=== PATIENT | female | born 1995 | race Caucasian/White ===

== ENCOUNTER 2017-11-28 15:44 | Emergency (ER) | payer OTHER ==
[~2017-11-28] VITALS: Ht 157.5 cm; Wt 45.3 kg
[~2017-11-28 15:44] MED LIST: ONDA4TAB10 SL
[2017-11-28 15:57] VITALS: TEMP 37.1; Ht 157.5 cm; Wt 45.3 kg
[2017-11-28] MEDS ORDERED: SODIUM CHLORIDE 0.9% 500ML 500 ML IV STA (17:36)
[2017-11-28] MEDS ORDERED: ONDANSETRON INJ 2 MG/ML 2 ML VIAL IV STA (17:36)
[2017-11-28] MEDS ORDERED: KETOROLAC TROMETHAMINE 30 MG/ML VIAL IV STA (17:36)
--- NOTE | 2017-11-28 17:36 | EMERGENCY ROOM VISIT NOTE ---
History Report prepared by Cresencio: Jonathan Adamson Under the Supervision of: Dr. Mariano Dixon M.D. First contact with patient: 17:18 Chief Complaint: ABDOMINAL PAIN Stated Complaint: RIGHT SIDE PAIN, STOMACH PAIN Nursing Triage Summary: Patient with c/o right lower abdominal pain. c/o nausea, dizziness. History of Present Illness The patient is a 22 year old female with a past medical history of asthma, PNA, and bronchitis who presents to the ED with a cc of constant RLQ quadrant pain that the patient describes are a sharp sensation that started a couple hours ago while at work. The patient did state that she had a bowel movement a couple minutes ago and it was normal. The patient also noted that her LNMP was about two weeks ago and it was normal as well. Positive for nausea and FHx of DM.. Negative for fevers, chills, current medications, alcohol use, tobacco use, drug use, and vomiting. Source of History: patient Onset: A couple hours ago Position: abdomen (Middle and RLQ) Quality: sharp Timing: constant Associated Symptoms: + nausea, No fevers, No chills, No vomiting, No diarrhea Review of Systems See HPI for pertinent positives and negatives. A total of ten systems were reviewed and were otherwise negative. Past Medical & Surgical Medical Problems: (1) Asthma (2) Bronchitis (3) Pneumonia Family History FHx: cancer FHx: gallbladder disease FHx: hypertension FHx: kidney disease/stones FHx: lung disease Social History Smoking Status: Never Smoker Alcohol Use: none Marital Status: single Housing Status: lives with family Occupation Status: student Current/Historical Medications Scheduled PRN Ondansetron Hcl (Zofran), 4 MG PO Q8H PRN for Nausea Allergies Coded Allergies: No Known Allergies (Unverified , 11/28/17) Physical Exam Vital Signs Date Time Temp Pulse Resp B/P (MAP) Pulse Ox O2 Delivery O2 Flow Rate FiO2 11/28/17 19:27 50 18 123/67 100 11/28/17 19:09 50 18 123/67 100 Room Air 11/28/17 18:09 81 11/28/17 17:54 70 97/59 100 Room Air 11/28/17 15:57 37.1 85 18 123/65 97 Room Air Physical Exam GENERAL: Awake, alert, well-appearing, NAD HENT: Normocephalic, atraumatic. EYES: Normal conjunctiva. Sclera non-icteric. PERRL. No anisocoria. NECK: Supple. No nuchal rigidity. FROM. RESPIRATORY: CTAB, no rhonchi, wheezing, crackles CARDIAC: RRR, no MRG ABDOMEN: Soft, NTND, BS+, RLQ pain, epigastric pain, periumbilical pain, positive obturator, positive psoas MSK: No chest wall TTP, no LE edema NEURO: GCS 15, CN 2-12 intact, moves all 4s on command SKIN: No rash or jaundice noted. Tattoos noted bilaterally on UE Medical Decision & Procedures ER Provider Diagnostic Interpretation: Radiology results as stated below per my review and radiologist interpretation: CT OF THE ABDOMEN AND PELVIS WITH CONTRAST CLINICAL HISTORY: Right lower quadrant pain. Periumbilical pain. COMPARISON STUDY: CT of the abdomen and pelvis August 12, 2013 and right upper quadrant ultrasound July 06, 2015. TECHNIQUE: Following IV administration of 93 mL of Optiray-320, axial images of the abdomen and pelvis were obtained from the lung bases to the proximal femurs. Images were reviewed in the axial, sagittal, and coronal planes. IV contrast was administered without complication. A dose lowering technique was utilized adhering to the principles of ALARA. CT DOSE: 229.31 mGycm FINDINGS: Lung bases are clear. Periportal edema is noted. There is no biliary or pancreatic ductal dilatation. Prominent mucosal enhancement of the gallbladder is noted. However, the gallbladder is not distended. Spleen, adrenal glands, kidneys and pancreas are unremarkable. There is no hydronephrosis or hydroureter. Caliber and wall thickness of small and large bowel are normal. The appendix is normal. No pneumatosis, free air or portal venous gas is present. A left ovarian corpus luteal cyst measures 2.1 cm. No suspicious osseous lesions are noted. Small pelvic calcifications likely reflect phleboliths. IMPRESSION: 1. No acute process within the abdomen or pelvis. Normal appendix. No bowel obstruction. 2. 2.1 cm left ovarian corpus luteal cyst. 3. 2 mm right pelvic calcification. The course of the right ureter is difficult to follow however this likely reflects a phlebolith. A nonobstructing ureteral calculus is considered less likely. No hydronephrosis. Electronically signed by: Loc Hong M.D. 11/28/2017 6:58 PM Dictated Date/Time: 11/28/2017 6:52 PM Laboratory Results 11/28/17 17:43 Red Blood Count 4.71, Mean Corpuscular Volume 89.4, Mean Corpuscular Hemoglobin 29.3, Mean Corpuscular Hemoglobin Concent 32.8, Mean Platelet Volume 11.4, Neutrophils (%) (Auto) 62.2, Lymphocytes (%) (Auto) 28.1, Monocytes (%) (Auto) 8.7, Eosinophils (%) (Auto) 0.8, Basophils (%) (Auto) 0.1, Neutrophils # (Auto) 4.44, Lymphocytes # (Auto) 2.01, Monocytes # (Auto) 0.62, Eosinophils # (Auto) 0.06, Basophils # (Auto) 0.01 11/28/17 17:43 Test 11/28/17 17:43 White Blood Count 7.15 K/uL (4.8-10.8) Red Blood Count 4.71 M/uL (4.2-5.4) Hemoglobin 13.8 g/dL (12.0-16.0) Hematocrit 42.1 % (37-47) Mean Corpuscular Volume 89.4 fL (80-100) Mean Corpuscular Hemoglobin 29.3 pg (25-34) Mean Corpuscular Hemoglobin Concent 32.8 g/dl (32-36) Platelet Count 230 K/uL (130-400) Mean Platelet Volume 11.4 fL (7.4-10.4) Neutrophils (%) (Auto) 62.2 % Lymphocytes (%) (Auto) 28.1 % Monocytes (%) (Auto) 8.7 % Eosinophils (%) (Auto) 0.8 % Basophils (%) (Auto) 0.1 % Neutrophils # (Auto) 4.44 K/uL (1.4-6.5) Lymphocytes # (Auto) 2.01 K/uL (1.2-3.4) Monocytes # (Auto) 0.62 K/uL (0.11-0.59) Eosinophils # (Auto) 0.06 K/uL (0-0.5) Basophils # (Auto) 0.01 K/uL (0-0.2) RDW Standard Deviation 41.5 fL (36.4-46.3) RDW Coefficient of Variation 12.7 % (11.5-14.5) Immature Granulocyte % (Auto) 0.1 % Immature Granulocyte # (Auto) 0.01 K/uL (0.00-0.02) Urine Color YELLOW Urine Appearance TURBID (CLEAR) Urine pH 8.0 (4.5-7.5) Urine Specific [place] 1.023 (1.000-1.030) Urine Protein NEG (NEG) Urine Glucose (UA) NEG (NEG) Urine Ketones NEG (NEG) Urine Occult Blood NEG (NEG) Urine Nitrite NEG (NEG) Urine Bilirubin NEG (NEG) Urine Urobilinogen NEG (NEG) Urine Leukocyte Esterase TRACE (NEG) Urine WBC (Auto) 5-10 /hpf (0-5) Urine RBC (Auto) 0-4 /hpf (0-4) Urine Hyaline Casts (Auto) 1-5 /lpf (0-5) Urine Epithelial Cells (Auto) >30 /lpf (0-5) Urine Bacteria (Auto) NEG (NEG) Urine Test NEG (NEG) Anion Gap 3.0 mmol/L (3-11) Est Creatinine Clear Calc Drug Dose 67.1 ml/min Estimated GFR () 99.8 Estimated GFR (Non- 86.1 BUN/Creatinine Ratio 14.5 (10-20) Calcium Level 8.7 mg/dl (8.5-10.1) Total Bilirubin 0.6 mg/dl (0.2-1) Direct Bilirubin 0.2 mg/dl (0-0.2) Aspartate Amino Transf (AST/SGOT) 17 U/L (15-37) Alanine Aminotransferase (ALT/SGPT) 17 U/L (12-78) Alkaline Phosphatase 77 U/L (45-117) Total Protein 7.3 gm/dl (6.4-8.2) Albumin 4.1 gm/dl (3.4-5.0) Lipase 170 U/L (73-393) Laboratory results reviewed by me Medications Administered Medications (Trade) Dose Ordered Sig/Adelfo Route Start Time Stop Time Status Last Admin Dose Admin Ondansetron HCl (Zofran Inj) 4 mg NOW STAT IV 11/28/17 17:36 11/28/17 17:38 DC 11/28/17 17:51 4 MG Ketorolac Tromethamine (Toradol Inj) 30 mg NOW STAT IV 8/10/18 17:36 11/28/17 17:38 DC 11/28/17 17:52 30 MG Sodium Chloride 500 ml @ 999 mls/hr Q31M STAT IV 11/28/17 17:36 11/28/17 18:06 DC 11/28/17 17:52 999 MLS/HR Ondansetron HCl (ZOFRAN ODT 4MG Home Pack) 1 [facility] STK-MED ONCE .ROUTE 11/28/17 19:15 11/28/17 19:16 DC 11/28/17 19:18 1 [facility] ED Course 1730: The patient was evaluated in room C3. A complete history and physical exam was performed. 1916: I reevaluated the patient's condition and she is good to discharge. 1999: I reevaluated the patient. Discussed results and discharge instructions: She verbalized understanding and agreement. The patient is ready for discharge. Medical Decision Nursing notes reviewed. Ancillary studies and prior records reviewed. Differential diagnosis: Etiologies such as appendicitis, diverticulitis, PUD, biliary pathology, UTI, pancreatitis, obstruction, mesenteric ischemia, aortic pathology, infections, inflammatory bowel disease, renal colic, phlebitis as well as others were entertained. Patient was seen and evaluated the bedside. The patient states that she has had 3 hours of associated right lower quadrant discomfort. Patient states that she is fairly uncomfortable. Patient does have a positive obturator so has some right lower quadrant discomfort. Patient denies any vaginal bleeding or discharge. Last menstrual period in mid October. Patient did have blood work, urinalysis, CT abdomen pelvis and was given medications for symptom control. Patient's blood work is fairly unremarkable. Patient is fairly well-appearing upon reassessment. CT does show a phlebolith but no other acute abnormalities. Patient also does have a left-sided ovarian cyst. Patient does not have any left-sided abdominal or pelvic pain. The patient's cyst is only 2 cm less likely to torse. I did explain the findings the patient. The patient was feeling improved. Patient was given a different home pack and given Zofran as a prescription and also told to continue Motrin Tylenol bland diet. Patient was given strict follow-up, discharge, and return precautions. All questions were answered. Patient was deemed suitable for outpatient follow-up at this time. Patient agreed with the plan of care and was safely discharged home. Medication Reconcilliation Current Medication List: was personally reviewed by me Blood Pressure Screening Patient's blood pressure: Normal blood pressure Impression Primary Impression: Right lower quadrant abdominal pain Additional Impressions: Phlebolith Ovarian cyst Scribe Attestation The scribe's documentation has been prepared under my direction and personally reviewed by me in its entirety. I confirm that the note above accurately reflects all work, treatment, procedures, and medical decision making performed by me. Departure Information Dispostion Home / Self-Care Prescriptions Ondansetron Hcl (ZOFRAN) 4 Mg Tab 4 MG PO Q8H Y for Nausea, #12 TAB Prov: Mariano Dixon M.D. 11/28/17 Referrals No Doctor, Assigned (PCP) Forms HOME CARE DOCUMENTATION FORM, IMPORTANT VISIT INFORMATION Patient Instructions ED Diet [place], ED Nausea Vomiting, My [facility] Additional Instructions Please return to the emergency department if you have worsening or recurrent symptoms not amenable to at-home treatment. Please call for a follow-up appointment with her primary care physician. Please take your medications as prescribed. If you have other concerns and/or complaints please feel free to also call your primary care physician's office or return the ED for further evaluation, management, and treatment. You may take 600 mg Ibuprofen every 6 hours as needed for pain/fever with food unless told by your physician not to take NSAIDs. You may take tylenol 650 mg every 6 hours as needed for pain/fever unless told by your physician to not take it or have liver problems. You may take motrin and tylenol separately or at the same time. Take your medications as prescribed. You have been examined and treated today on an emergency basis only. This is not a substitute for, or an effort to provide, complete comprehensive medical care. It is impossible to recognize and treat all injuries or illnesses in a single emergency department visit. It is therefore important that you follow up closely with [facility], your PCP, and/or your specialist(s). Call as soon as possible for an appointment. Thank you for your time and consideration. I look forward to speaking with you again soon. Please don't hesitate to call us if you have any questions. Problem Qualifiers Additional Impressions: Ovarian cyst Laterality: left Qualified Codes: N83.202 - Unspecified ovarian cyst, left side
[2017-11-28] MEDS ORDERED: OPTIRAY 320 IV PRN (17:45)
[2017-11-28 17:54] LABS: BASO % 0.1 %; BASO ABS # 0.01 K/uL (0-0.2); EOS % 0.8 %; EOS ABS # 0.06 K/uL (0-0.5); HEMATOCRIT 42.1 % (37-47); HEMOGLOBIN 13.8 g/dL (12.0-16.0); IG# 0.01 K/uL (0.00-0.02); LYMPH % 28.1 %; LYMPH ABS # 2.01 K/uL (1.2-3.4); MEAN CELL VOLUME 89.4 fL (80-100); MEAN CORPUSCULAR HEMOGLOBIN 29.3 pg (25-34); MEAN CORPUSCULAR HGB CONC 32.8 g/dl (32-36); MEAN PLATELET VOLUME 11.4 fL (7.4-10.4); MONO % 8.7 %; MONO ABS # 0.62 K/uL (0.11-0.59); NEUT % 62.2 %; NEUT ABS # 4.44 K/uL (1.4-6.5); PLATELET COUNT 230 K/uL (130-400); RED CELL DISTRIBUTION WIDTH CV 12.7 % (11.5-14.5); RED CELL DISTRIBUTION WIDTH SD 41.5 fL (36.4-46.3); WHITE BLOOD COUNT 7.15 K/uL (4.8-10.8)
[2017-11-28 18:14] LABS: ALBUMIN 4.1 gm/dl (3.4-5.0); CALCIUM 8.7 mg/dl (8.5-10.1); CREATININE 0.94 mg/dl (0.60-1.20); POTASSIUM 3.8 mmol/L (3.5-5.1); TOTAL PROTEIN 7.3 gm/dl (6.4-8.2)
--- NOTE | 2017-11-28 19:00 | DIAGNOSTIC IMAGING REPORT ---
CT OF THE ABDOMEN AND PELVIS WITH CONTRAST CLINICAL HISTORY: Right lower quadrant pain. Periumbilical pain. COMPARISON STUDY: CT of the abdomen and pelvis August 12, 2013 and right upper quadrant ultrasound July 06, 2015. TECHNIQUE: Following IV administration of 93 mL of Optiray-320, axial images of the abdomen and pelvis were obtained from the lung bases to the proximal femurs. Images were reviewed in the axial, sagittal, and coronal planes. IV contrast was administered without complication. A dose lowering technique was utilized adhering to the principles of ALARA. CT DOSE: 229.31 mGycm FINDINGS: Lung bases are clear. Periportal edema is noted. There is no biliary or pancreatic ductal dilatation. Prominent mucosal enhancement of the gallbladder is noted. However, the gallbladder is not distended. Spleen, adrenal glands, kidneys and pancreas are unremarkable. There is no hydronephrosis or hydroureter. Caliber and wall thickness of small and large bowel are normal. The appendix is normal. No pneumatosis, free air or portal venous gas is present. A left ovarian corpus luteal cyst measures 2.1 cm. No suspicious osseous lesions are noted. Small pelvic calcifications likely reflect phleboliths. IMPRESSION: 1. No acute process within the abdomen or pelvis. Normal appendix. No bowel obstruction. 2. 2.1 cm left ovarian corpus luteal cyst. 3. 2 mm right pelvic calcification. The course of the right ureter is difficult to follow however this likely reflects a phlebolith. A nonobstructing ureteral calculus is considered less likely. No hydronephrosis. Electronically signed by: Loc Hong M.D. 11/28/2017 6:58 PM Dictated Date/Time: 11/28/2017 6:52 PM
[2017-11-28] MEDS ORDERED: ONDANSETRON HOME PACK 4MG OD TAB ONE (19:15)
[2017-11-28] MEDS ORDERED: ONDA4TAB46 PO (19:21)
[2017-11-28 19:27] VITALS: BP 123/67; PULSE 50; O2SAT 100
== END 2017-11-28 19:27 | disposition home or self-care (01) ==
LOC: C.EDB 15:46 → C.EDC 19:27
DX: R10.31 Right lower quadrant pain (principal); I87.8 Other specified disorders of veins; N83.202 Unspecified ovarian cyst, left side; J45.909 Unspecified asthma, uncomplicated

== ENCOUNTER 2017-12-14 15:18 | Emergency (ER) | payer OTHER ==
[~2017-12-14] VITALS: Ht 157.5 cm; Wt 44.2 kg
[~2017-12-14 15:18] MED LIST changes: -ONDA4TAB10 SL; +ONDA4TAB46 PO
[2017-12-14 15:21] VITALS: Ht 157.5 cm; Wt 44.2 kg
[2017-12-14] MEDS ORDERED: PROPARACAINE HCL 0.5% OP SOLN 15 ML BTL ONE (15:42)
[2017-12-14] MEDS ORDERED: CIPROFLOXACIN HCL 0.3% OP SOLN 2.5 ML BTL OPL ONE (16:00)
--- NOTE | 2017-12-14 16:03 | EMERGENCY ROOM VISIT NOTE ---
ED Visit Note First contact with patient: 15:37 CHIEF COMPLAINT: Left eye injury this morning HISTORY OF PRESENT ILLNESS: The patient is a 22-year-old who female who presents the emergency department for evaluation of left eye pain after she was accidentally scratched by her niece around 1030 this morning. Patient reports tearing and blurry vision. She has tried applying a cool compress to the area. She does not wear glasses or corrective lenses. She reports mild constant discomfort. and tearing in the eye. There is a mild blurring of vision at times and light bothers the eye. The vision has not been decreased over all. REVIEW OF SYSTEMS: Review of systems as per HPI. All other systems reviewed were negative. At least 6 systems reviewed. PMH: Electronic medical records are reviewed and summarized as above/below. See Problem List. SOCIAL HISTORY: Patient lives at home. Employed. PHYSICAL EXAM: Vital Signs: Reviewed Nurse's notes. VISUAL ACUITY 20/20 in the right eye, 20/30 in the left eye. GENERAL: Patient is a well-appearing 22-year- old female who is awake and alert and in no distress. EYES: The pupils are round, equal, and react to light. EOMs are full. There is mild left eye conjunctival injection. No significant discharge present. No foreign body was seen embedded in the cornea. The cornea was clear and no hyphema was seen. Fluorescein uptake was observed with ultraviolet light between 5 and 6:00 and small, [place] shaped injury. EMERGENCY DEPARTMENT COURSE: Ciloxan drops were instilled in the left eye. Conservative care measures were discussed. Differential diagnoses entertained included abrasion, corneal ulcer, conjunctivitis, corneal foreign body, among others. Medication reconciliation: I attest that I have personally reviewed the patient' s current medication list. Blood pressure screening : Patient was found to have normal blood pressure on screening and does not require follow-up. Problem List Medical Problems: (1) Abdominal pain Status: Resolved (2) Abdominal pain Status: Resolved (3) Acute pain of right foot Status: Resolved (4) Asthma Status: Chronic (5) Bronchitis Status: Resolved (6) Hematuria Status: Resolved (7) Hematuria Status: Resolved (8) Left flank pain Status: Resolved (9) Pneumonia Status: Resolved (10) Pyelonephritis Status: Resolved (11) Right lower quadrant abdominal pain Status: Resolved Current/Historical Medications Scheduled PRN Ondansetron Hcl (Zofran), 4 MG PO Q8H PRN for Nausea Allergies Coded Allergies: No Known Allergies (Unverified , 11/28/17) Vital Signs Date Time Temp Pulse Resp B/P (MAP) Pulse Ox O2 Delivery O2 Flow Rate FiO2 12/14/17 15:21 37.0 103 16 123/74 97 Room Air Departure Information Impression Primary Impression: Left corneal abrasion Referrals No Doctor, Assigned (PCP) Patient Instructions [facility] Additional Instructions 2 antibiotic eyedrops in the left eye every 4 hours while awake for 5 days. Ibuprofen(Motrin, Advil) may be used for fever or pain. Use 600mg every six hours as needed. Take with food. Avoid using more than 2400mg in a 24 hour period. Do not use 2400mg per day for more than three consecutive days without physician direction. Prolonged inappropriate use can lead to stomach upset or ulcers. (AND/OR) Acetaminophen(Tylenol) may be used for fever or pain. Use 1000mg every six hours as needed. Avoid using more than 3000mg in a 24 hour period. You may also intermittently apply a cool compress and wear sunglasses for additional relief. Start with all-new contact lenses, solution, rewetting drops and cosmetics. Follow-up with an installer technician if no improvement within 36-48 hrs. Return to the ED for worsening pain or changes in vision.
[2017-12-14 16:15] VITALS: BP 125/78; PULSE 89; TEMP 37; O2SAT 98
== END 2017-12-14 16:16 | disposition home or self-care (01) ==
LOC: C.EDB 15:20 → C.EDD 16:16
DX: S05.02XA Injury of conjunctiva and corneal abrasion without foreign body, left eye, initial encounter (principal); W51.XXXA Accidental striking against or bumped into by another person, initial encounter; J45.909 Unspecified asthma, uncomplicated

== ENCOUNTER 2022-06-17 07:26 | Inpatient (IN) ==
[2022-06-17] MEDS ORDERED: LIDOCAINE 1% LOCAL 20 ML VIAL INFIL PRN (08:18)
[2022-06-17] MEDS ORDERED: OXYTOCIN 30 UNITS/500 ML BAG IV PRN ×2 (08:18)
--- NOTE | 2022-06-17 08:34 | History & Physical Report ---
Date of Service June 17, 2022 Assessment & Plan (1) Supervision of normal intrauterine in primigravida: Plan: Admit to L&D. EFM/toco. Labs. Pitocin. Agreeable with plan. Admission and Anticipated Discharge Date Admission Date: June 17, 2022 History of Present Illness Chief Complaint: IOL Primary Care Provider: AMY Matt 26yo @ 41 06/25, IOL for postdates. Doing well. +FM, no vaginal bleeding, no leaking fluid. No reg ctx. Wood bulb fell out this morning. Allergies Allergy/AdvReac Type Severity Reaction Status Date / Time No Known Allergies Allergy Verified 06/13/22 13:14 Home Medications Medication Instructions Recorded Confirmed Type prenat.vits,corin,nvh-yhos-[id number] 1 tab PO DAILY 10/29/21 06/17/22 History Patient History Medical History Anxiety and depression Asthma Bronchitis Hematuria Migraine without aura Pneumonia Surgical History No significant past surgical history Family History Mother Myocardial infarction, Onset Age: 38 Kidney disease ESRD Spina bifida Grandmother Breast cancer Denies family history of Ovarian cancer Prostate cancer Colorectal cancer Social History (Updated 06/17/22 @ 07:52 by Tash Woodson RN) Smoking Status: Never smoker Second Hand Exposure: No; Hx Alcohol Use: No Hx Substance Use: No Preferred Language: Paraguayan Communication Ability: Effective Visual Impairment: No Limitations Hearing Ability: Normal Calender Roll Operator Required: No Beliefs That Will Affect Care: None marital status: Single marital status details: Ayaz Friedman [phone] Current Living Situation: Significant Other Current Living Situation Comment: lives with Ayaz, 1 cat, fob to change litter. 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 [employer] Other Information That Helps Us Care for You: No Feels Safe at Home: Yes Safety Concerns: Feels Safe At This Time Childhood Exposure to Second-Hand Smoke: Yes Dental Care, Regularly: No Physical Activity Frequency: 1-2 Times per Week Seatbelt Use: always Gender Identity: Female Assistive Devices: None Review of Systems All systems reviewed & are unremarkable except as noted in HPI & below Physical Exam Constitutional: WD/WN, vitals as above Respiratory: normal respiratory effort, lungs clear to auscultation no respiratory distress Cardiovascular: Rate/Rhythm: regular rate and regular rhythm Gastrointestinal (Abdomen): Inspection/Auscultation: abdomen normal to inspection Percussion/Palpation: abdomen soft; abdomen nontender Gravid. No s/s chorio or abruption. Skin: no rashes, warm and dry Psychiatric: A+Ox3, euthymic affect Results & Data ([facility]) Vital Signs (Past 12 Hours) Vital Signs Temp Pulse Resp BP 06/17/22 07:53 36.4 C L 20 06/17/22 07:40 87 125/81 Coding Level of Care Code None Diagnoses Supervision of normal intrauterine in primigravida Z34.00
[2022-06-17] MEDS: LACTATED RINGER'S 1,000 ML IV PRN ×4 (08:57→21:31)
[2022-06-17 09:19] LABS: Hematocrit (blood only) 29.3 % (37.0-47.0); Hemoglobin 9.2 g/dl (12.0-16.0); Mean Corpuscular Hemoglobin 24.9 pg (25.0-34.0); Mean Corpuscular Hgb Conc 31.4 g/dL (32.0-36.0); Mean Corpuscular Volume 79.2 fL (80.0-100.0); Mean Platelet Volume 13.5 fL (9.4-12.4); Platelet Count 197 K/uL (130-400); RDW Coefficient of Variation 15.8 % (11.5-14.5); RDW Standard Deviation 44.2 fL (36.4-46.3); White Blood Count 9.27 K/ul (4.8-10.8)
[2022-06-17] MEDS ORDERED: ePHEDrine sulfate 50 MG/ML AMP ONE (11:30)
[2022-06-17] MEDS ORDERED: SODIUM CHLORIDE 0.9% INJ 10 ML VIAL ONE (11:31)
[2022-06-17] MEDS ORDERED: fentaNYL citrate 100 MCG/2 ML VIAL ONE (11:31)
[2022-06-17] MEDS ORDERED: LIDOCAINE 2%/EPINEPHRINE 1:200,000 20 ML SDV ONE (11:31)
[2022-06-17] MEDS ORDERED: BUPIVACAINE 0.25% 30 ML VIAL ONE (11:31)
[2022-06-17] MEDS ORDERED: fentaNYL 2MCG/ML ROPIVACAINE 1.25MG/ML 100 ML BAG EPI ONE (11:32)
[2022-06-17] MEDS ORDERED: diphenhydrAMINE 50 MG/ML VIAL IV PRN (12:17)
[2022-06-17] MEDS ORDERED: NALOXONE HCL 1 MG in SODIUM CHLORIDE 0.9% 1000ML 1,000 ML IV PRN (12:17)
[2022-06-17] MEDS ORDERED: NALOXONE HCL 0.4 MG/1 ML VIAL/CARP IV PRN (12:17)
[2022-06-17] MEDS ORDERED: ePHEDrine sulfate 50 MG/ML AMP IV PRN (12:17)
[2022-06-17] MEDS ORDERED: NALBUPHINE HCL INJ 10 MG/ML AMP IV PRN (12:17)
--- NOTE | 2022-06-17 12:17 | Anesthesiology Consultation ---
Date of Service June 17, 2022 Assessment & Plan Chart Review Chart Review: Patient NOT seen in Pre Admission Testing and Acceptable Risk for Labor Epidural Consults Requested none ASA ASA2 Proposed Anesthesia Anesthesia Type: Labor Epidural Risk / Benefits Reviewed With: PT / POA / Parent / Guardian, Accepts Plan and Informed Consent Obtained History Height/Weight Height: 5 ft 2 in Weight: 59.421 kg Allergies Allergy/AdvReac Type Severity Reaction Status Date / Time No Known Allergies Allergy Verified 06/13/22 13:14 Medications Home Medications Medication Instructions Recorded Confirmed Last Taken prenat.vits,corin,rbo-vyna-zgmlp 1 tab PO DAILY 10/29/21 06/17/22 06/02/22 Active Medications Generic Name Dose Route Start Last Admin Trade Name Freq PRN Reason Stop Dose Admin Lactated Ringer's 1,000 mls @ 125 mls/hr 06/17/22 08:18 06/17/22 12:03 Lr IV 06/19/22 08:17 999 mls/hr .Q8H PRN Administration L&D Protocol Protocol Oxytocin 30 units in 500 mls @ 9 mls/hr 06/17/22 08:18 06/17/22 11:15 Pitocin IV 06/19/22 08:17 0.54 units/hr .Q24H PRN 9 mls/hr Labor Induction/Augmentation Titration Protocol 0.54 UNITS/HR Past Medical History Medical History Anxiety and depression Asthma Bronchitis Hematuria Migraine without aura Pneumonia Exercise / Class Metabolic Activity II 4-5 Yardwork/Stairs/Walk up hill Past Family History Family History Mother Myocardial infarction, Onset Age: 38 Kidney disease ESRD Spina bifida Grandmother Breast cancer Denies family history of Ovarian cancer Prostate cancer Colorectal cancer Past Surgical History Surgical History No significant past surgical history Past Anesthesia History No Hx of Anesthesia Complications and No Family Hx of Anesthesia Complications History of PONV No Hx of PONV and No Hx of Motion Sickness Social History Smoking Status: Never smoker tobacco type: cigarettes Hx Alcohol Use: No Hx Substance Use: No substance use type: does not use Physical Exam Vital Signs Last Vital Signs Temp 36.7 C 06/17/22 11:01 Pulse 92 H 06/17/22 12:12 Resp 20 06/17/22 12:00 BP 129/86 06/17/22 11:16 Pulse Ox 99 06/17/22 12:12 ENMT Mouth: no dentition abnormality Thyromental Distance: > or= 3.5 Finger Breadths Mallampati Class: II Neck normal visual inspection Respiratory normal respiratory effort Auscultation: lungs clear to auscultation bilaterally Cardiovascular Rate/Rhythm: regular rate and regular rhythm Psychiatric Orientation: alert Testing Laboratory Results 06/17/22 08:46
[2022-06-17] MEDS: fentaNYL 2MCG/ML ROPIVACAINE 1.25MG/ML 100 ML BAG EPI PRN ×2 (12:26→21:01)
--- NOTE | 2022-06-17 14:12 | Labor Progress Brief Note ---
Date of Service June 17, 2022 Subjective comfortable with epidural Assessment & Plan (1) Post-dates : Plan continue current management. fetus category one. meconium. anticipate . Admission and Anticipated Discharge Date Admission Date: June 17, 2022 Physical Exam Physical Exam: cx--4/50/-2 arom--thin mec toco--q3-5min, pit at 13 efm--130s wtih mod variability, accels to 150s, no decels Results & Data ([facility]) Vital Signs (Past 12 Hours) Vital Signs Temp Pulse Resp BP Pulse Ox 06/17/22 07:53 36.4 C L 20 06/17/22 14:07 98 06/17/22 14:07 107 H 06/17/22 14:02 98 06/17/22 14:02 116 H 06/17/22 13:57 98 06/17/22 13:57 90 06/17/22 13:58 85 06/17/22 13:58 121/73 06/17/22 13:52 98 06/17/22 13:52 134 H 06/17/22 13:47 97 06/17/22 13:47 131 H 06/17/22 13:42 97 06/17/22 13:42 114 H 06/17/22 13:42 123/78 06/17/22 13:37 97 06/17/22 13:37 96 H 06/17/22 13:32 99 06/17/22 13:32 82 06/17/22 13:27 98 06/17/22 13:27 86 06/17/22 13:27 117/75 06/17/22 13:22 100 06/17/22 13:22 82 06/17/22 13:17 99 06/17/22 13:17 135 H 06/17/22 13:12 98 06/17/22 13:12 137 H 06/17/22 13:12 115/64 06/17/22 13:07 100 06/17/22 13:07 95 H 06/17/22 13:02 99 06/17/22 13:02 102 H 06/17/22 12:30 20 06/17/22 12:30 20 06/17/22 13:00 20 06/17/22 13:00 20 06/17/22 12:35 18 06/17/22 12:35 18 06/17/22 12:40 18 06/17/22 12:40 18 06/17/22 12:45 20 06/17/22 12:45 20 06/17/22 12:57 98 06/17/22 12:57 128 H 06/17/22 12:55 129 H 06/17/22 12:55 117/65 06/17/22 12:53 84 06/17/22 12:53 123/66 06/17/22 12:52 98 06/17/22 12:52 110 H 06/17/22 12:51 88 06/17/22 12:51 131/70 06/17/22 12:49 136 H 06/17/22 12:49 110/58 L 06/17/22 12:47 100 06/17/22 12:47 93 H 06/17/22 12:47 153 H 06/17/22 12:47 94/50 L 06/17/22 12:44 108 H 06/17/22 12:44 123/56 L 06/17/22 12:42 98 06/17/22 12:42 134 H 06/17/22 12:41 103 H 06/17/22 12:41 128/62 06/17/22 12:38 114 H 06/17/22 12:38 145/78 H 06/17/22 12:37 98 06/17/22 12:37 159 H 06/17/22 12:36 171 H 06/17/22 12:36 147/96 H 06/17/22 12:35 89 06/17/22 12:35 139/81 06/17/22 12:32 98 06/17/22 12:32 122 H 06/17/22 12:33 115 H 06/17/22 12:33 84/50 L 06/17/22 12:31 93 H 06/17/22 12:31 130/72 06/17/22 12:30 92 06/17/22 12:30 107 H 06/17/22 12:29 84 06/17/22 12:29 124/77 06/17/22 12:27 98 06/17/22 12:27 106 H 06/17/22 12:27 121 H 06/17/22 12:27 121/77 06/17/22 12:22 99 06/17/22 12:22 98 H 06/17/22 12:17 98 06/17/22 12:17 92 H 06/17/22 12:12 99 06/17/22 12:12 92 H 06/17/22 12:07 99 06/17/22 12:07 90 06/17/22 12:00 20 06/17/22 12:00 20 06/17/22 12:02 100 06/17/22 12:02 88 06/17/22 11:57 99 06/17/22 11:57 81 06/17/22 11:52 100 06/17/22 11:52 80 06/17/22 11:30 20 06/17/22 11:30 20 06/17/22 11:01 36.7 C 06/17/22 11:00 20 06/17/22 11:00 20 06/17/22 11:16 83 06/17/22 11:16 129/86 06/17/22 10:00 20 06/17/22 10:00 20 06/17/22 10:04 83 06/17/22 10:04 123/78 06/17/22 09:30 20 06/17/22 09:30 20 06/17/22 08:58 80 06/17/22 08:58 121/83 06/17/22 07:40 87 125/81 Coding Level of Care Code None Diagnoses Post-dates O48.0
--- NOTE | 2022-06-17 15:01 | Labor Progress Brief Note ---
Date of Service June 17, 2022 Subjective ctsp for decel she had while vomiting. Assessment & Plan (1) Post-dates : Plan continue current plan. Likely response to emesis. Fetus overall reassuring. Admission and Anticipated Discharge Date Admission Date: June 17, 2022 Physical Exam Physical Exam: cx--575/-2 toco--q2-3min efm--decle to the 50s, resolved with position change, oxygen, pit off and cessation of vomiting now 120s with mod variablity, aaccels to 140s, no decels Results & Data ([facility]) Vital Signs (Past 12 Hours) Vital Signs Temp Pulse Resp BP Pulse Ox 06/17/22 07:53 36.4 C L 20 06/17/22 14:57 100 06/17/22 14:57 86 06/17/22 14:58 90 06/17/22 14:58 107/59 L 06/17/22 14:52 100 06/17/22 14:52 87 06/17/22 14:48 146 H 06/17/22 14:48 149/68 H 06/17/22 14:47 98 06/17/22 14:47 154 H 06/17/22 14:42 99 06/17/22 14:42 96 H 06/17/22 14:43 101 H 06/17/22 14:43 117/83 06/17/22 14:37 99 06/17/22 14:37 99 H 06/17/22 13:30 20 06/17/22 13:30 20 06/17/22 14:00 20 06/17/22 14:00 20 06/17/22 14:32 99 06/17/22 14:32 91 H 06/17/22 14:27 100 06/17/22 14:27 86 06/17/22 14:27 122/80 06/17/22 14:10 18 06/17/22 14:10 36.6 C 18 06/17/22 14:22 100 06/17/22 14:22 85 06/17/22 14:17 99 06/17/22 14:17 111 H 06/17/22 14:14 97 H 06/17/22 14:14 118/78 06/17/22 14:12 98 06/17/22 14:12 85 06/17/22 14:07 98 06/17/22 14:07 107 H 06/17/22 14:02 98 06/17/22 14:02 116 H 06/17/22 13:57 98 06/17/22 13:57 90 06/17/22 13:58 85 06/17/22 13:58 121/73 06/17/22 13:52 98 06/17/22 13:52 134 H 06/17/22 13:47 97 06/17/22 13:47 131 H 06/17/22 13:42 97 06/17/22 13:42 114 H 06/17/22 13:42 123/78 06/17/22 13:37 97 06/17/22 13:37 96 H 06/17/22 13:32 99 06/17/22 13:32 82 06/17/22 13:27 98 06/17/22 13:27 86 06/17/22 13:27 117/75 06/17/22 13:22 100 06/17/22 13:22 82 06/17/22 13:17 99 06/17/22 13:17 135 H 06/17/22 13:12 98 06/17/22 13:12 137 H 06/17/22 13:12 115/64 06/17/22 13:07 100 06/17/22 13:07 95 H 06/17/22 13:02 99 06/17/22 13:02 102 H 06/17/22 12:30 20 06/17/22 12:30 20 06/17/22 13:00 20 06/17/22 13:00 20 06/17/22 12:35 18 06/17/22 12:35 18 06/17/22 12:40 18 06/17/22 12:40 18 06/17/22 12:45 20 06/17/22 12:45 20 06/17/22 12:57 98 06/17/22 12:57 128 H 06/17/22 12:55 129 H 06/17/22 12:55 117/65 06/17/22 12:53 84 06/17/22 12:53 123/66 06/17/22 12:52 98 06/17/22 12:52 110 H 06/17/22 12:51 88 06/17/22 12:51 131/70 06/17/22 12:49 136 H 06/17/22 12:49 110/58 L 06/17/22 12:47 100 06/17/22 12:47 93 H 06/17/22 12:47 153 H 06/17/22 12:47 94/50 L 06/17/22 12:44 108 H 06/17/22 12:44 123/56 L 06/17/22 12:42 98 06/17/22 12:42 134 H 06/17/22 12:41 103 H 06/17/22 12:41 128/62 06/17/22 12:38 114 H 06/17/22 12:38 145/78 H 06/17/22 12:37 98 06/17/22 12:37 159 H 06/17/22 12:36 171 H 06/17/22 12:36 147/96 H 06/17/22 12:35 89 06/17/22 12:35 139/81 06/17/22 12:32 98 06/17/22 12:32 122 H 06/17/22 12:33 115 H 06/17/22 12:33 84/50 L 06/17/22 12:31 93 H 06/17/22 12:31 130/72 06/17/22 12:30 92 06/17/22 12:30 107 H 06/17/22 12:29 84 06/17/22 12:29 124/77 06/17/22 12:27 98 06/17/22 12:27 106 H 06/17/22 12:27 121 H 06/17/22 12:27 121/77 06/17/22 12:22 99 06/17/22 12:22 98 H 06/17/22 12:17 98 06/17/22 12:17 92 H 06/17/22 12:12 99 06/17/22 12:12 92 H 06/17/22 12:07 99 06/17/22 12:07 90 06/17/22 12:00 20 06/17/22 12:00 20 06/17/22 12:02 100 06/17/22 12:02 88 06/17/22 11:57 99 06/17/22 11:57 81 06/17/22 11:52 100 06/17/22 11:52 80 06/17/22 11:30 20 06/17/22 11:30 20 06/17/22 11:01 36.7 C 06/17/22 11:00 20 06/17/22 11:00 20 06/17/22 11:16 83 06/17/22 11:16 129/86 06/17/22 10:00 20 06/17/22 10:00 20 06/17/22 10:04 83 06/17/22 10:04 123/78 06/17/22 09:30 20 06/17/22 09:30 20 06/17/22 08:58 80 06/17/22 08:58 121/83 06/17/22 07:40 87 125/81 Coding Level of Care Code None Diagnoses Post-dates O48.0
--- NOTE | 2022-06-17 16:39 | Labor Progress Brief Note ---
Date of Service June 17, 2022 Subjective comfortable Assessment & Plan (1) Post-dates : Plan continue current plan, restarted pitocin, fetus mostly category one with occasional variable with contraction. Admission and Anticipated Discharge Date Admission Date: June 17, 2022 Physical Exam Physical Exam: cx--unchanged toco--qq3-5min efm--130s with mod variability, small accels, occasional variable/early with contractions Results & Data ([facility]) Vital Signs (Past 12 Hours) Vital Signs Temp Pulse Resp BP Pulse Ox 06/17/22 07:53 36.4 C L 20 06/17/22 16:32 99 06/17/22 16:32 115 H 06/17/22 16:27 99 06/17/22 16:27 93 H 06/17/22 16:27 108/60 06/17/22 16:22 98 06/17/22 16:22 84 06/17/22 16:15 16 06/17/22 16:15 16 06/17/22 16:17 99 06/17/22 16:17 85 06/17/22 16:12 100 06/17/22 16:12 82 06/17/22 16:13 82 06/17/22 16:13 114/64 06/17/22 16:07 100 06/17/22 16:07 89 06/17/22 16:02 98 06/17/22 16:02 93 H 06/17/22 15:59 91 H 06/17/22 15:59 114/64 06/17/22 15:57 100 06/17/22 15:57 86 06/17/22 15:52 98 06/17/22 15:52 86 06/17/22 15:47 98 06/17/22 15:47 83 06/17/22 15:42 99 06/17/22 15:42 88 06/17/22 15:43 86 06/17/22 15:43 132/73 06/17/22 15:37 99 06/17/22 15:37 91 H 06/17/22 15:30 20 06/17/22 15:30 20 06/17/22 15:32 100 06/17/22 15:32 97 H 06/17/22 15:27 99 06/17/22 15:27 96 H 06/17/22 15:27 126/71 02/27/23 15:22 99 06/17/22 15:22 96 H 06/17/22 15:17 100 06/17/22 15:17 109 H 06/17/22 15:14 108 H 06/17/22 15:14 138/85 06/17/22 15:12 99 06/17/22 15:12 120 H 06/17/22 15:07 100 06/17/22 15:07 90 06/17/22 15:02 100 06/17/22 15:02 112 H 06/17/22 14:57 100 06/17/22 14:57 86 06/17/22 14:58 90 06/17/22 14:58 107/59 L 06/17/22 14:52 100 06/17/22 14:52 87 06/17/22 14:48 146 H 06/17/22 14:48 149/68 H 06/17/22 14:47 98 06/17/22 14:47 154 H 06/17/22 14:42 99 06/17/22 14:42 96 H 06/17/22 14:43 101 H 06/17/22 14:43 117/83 06/17/22 14:37 99 06/17/22 14:37 99 H 06/17/22 13:30 20 06/17/22 13:30 20 06/17/22 14:00 20 06/17/22 14:00 20 06/17/22 14:32 99 06/17/22 14:32 91 H 06/17/22 14:27 100 06/17/22 14:27 86 06/17/22 14:27 122/80 06/17/22 14:10 18 06/17/22 14:10 36.6 C 18 06/17/22 14:22 100 06/17/22 14:22 85 06/17/22 14:17 99 06/17/22 14:17 111 H 06/17/22 14:14 97 H 06/17/22 14:14 118/78 06/17/22 14:12 98 06/17/22 14:12 85 06/17/22 14:07 98 06/17/22 14:07 107 H 06/17/22 14:02 98 06/17/22 14:02 116 H 06/17/22 13:57 98 02/27/23 13:57 90 06/17/22 13:58 85 06/17/22 13:58 121/73 06/17/22 13:52 98 06/17/22 13:52 134 H 06/17/22 13:47 97 06/17/22 13:47 131 H 06/17/22 13:42 97 06/17/22 13:42 114 H 06/17/22 13:42 123/78 06/17/22 13:37 97 06/17/22 13:37 96 H 06/17/22 13:32 99 06/17/22 13:32 82 06/17/22 13:27 98 06/17/22 13:27 86 06/17/22 13:27 117/75 06/17/22 13:22 100 06/17/22 13:22 82 06/17/22 13:17 99 06/17/22 13:17 135 H 06/17/22 13:12 98 06/17/22 13:12 137 H 06/17/22 13:12 115/64 06/17/22 13:07 100 06/17/22 13:07 95 H 06/17/22 13:02 99 06/17/22 13:02 102 H 06/17/22 12:30 20 06/17/22 12:30 20 06/17/22 13:00 20 06/17/22 13:00 20 06/17/22 12:35 18 06/17/22 12:35 18 06/17/22 12:40 18 06/17/22 12:40 18 06/17/22 12:45 20 06/17/22 12:45 20 06/17/22 12:57 98 06/17/22 12:57 128 H 06/17/22 12:55 129 H 06/17/22 12:55 117/65 06/17/22 12:53 84 06/17/22 12:53 123/66 06/17/22 12:52 98 06/17/22 12:52 110 H 06/17/22 12:51 88 06/17/22 12:51 131/70 06/17/22 12:49 136 H 06/17/22 12:49 110/58 L 06/17/22 12:47 100 06/17/22 12:47 93 H 06/17/22 12:47 153 H 06/17/22 12:47 94/50 L 06/17/22 12:44 108 H 06/17/22 12:44 123/56 L 06/17/22 12:42 98 06/17/22 12:42 134 H 06/17/22 12:41 103 H 06/17/22 12:41 128/62 06/17/22 12:38 114 H 06/17/22 12:38 145/78 H 06/17/22 12:37 98 06/17/22 12:37 159 H 06/17/22 12:36 171 H 06/17/22 12:36 147/96 H 06/17/22 12:35 89 06/17/22 12:35 139/81 06/17/22 12:32 98 06/17/22 12:32 122 H 06/17/22 12:33 115 H 06/17/22 12:33 84/50 L 06/17/22 12:31 93 H 06/17/22 12:31 130/72 06/17/22 12:30 92 06/17/22 12:30 107 H 06/17/22 12:29 84 06/17/22 12:29 124/77 06/17/22 12:27 98 06/17/22 12:27 106 H 06/17/22 12:27 121 H 06/17/22 12:27 121/77 06/17/22 12:22 99 06/17/22 12:22 98 H 06/17/22 12:17 98 06/17/22 12:17 92 H 06/17/22 12:12 99 06/17/22 12:12 92 H 06/17/22 12:07 99 06/17/22 12:07 90 06/17/22 12:00 20 06/17/22 12:00 20 06/17/22 12:02 100 06/17/22 12:02 88 06/17/22 11:57 99 06/17/22 11:57 81 06/17/22 11:52 100 06/17/22 11:52 80 06/17/22 11:30 20 06/17/22 11:30 20 06/17/22 11:01 36.7 C 06/17/22 11:00 20 06/17/22 11:00 20 06/17/22 11:16 83 06/17/22 11:16 129/86 06/17/22 10:00 20 06/17/22 10:00 20 06/17/22 10:04 83 06/17/22 10:04 123/78 06/17/22 09:30 20 06/17/22 09:30 20 06/17/22 08:58 80 06/17/22 08:58 121/83 06/17/22 07:40 87 125/81 Coding Level of Care Code None Diagnoses Post-dates O48.0
[2022-06-17] MEDS: ONDANSETRON INJ 2 MG/ML 2 ML VIAL IV PRN (17:03)
--- NOTE | 2022-06-17 19:45 | Labor Progress Brief Note ---
Date of Service June 17, 2022 Subjective comfortable Assessment & Plan (1) Post-dates : Plan iupc placed to better monitor contractions. fetus overall category one. Continue current management. Admission and Anticipated Discharge Date Admission Date: June 17, 2022 Physical Exam Physical Exam: cx--5/100/-2 toco--q2-3min, pit at 19 efm--120s with mod variability, +accels, early with some contractions Results & Data ([facility]) Vital Signs (Past 12 Hours) Vital Signs Temp Pulse Resp BP Pulse Ox 06/17/22 07:53 36.4 C L 20 06/17/22 19:37 97 06/17/22 19:37 102 H 06/17/22 19:32 98 06/17/22 19:32 99 H 06/17/22 19:27 97 06/17/22 19:27 95 H 06/17/22 19:27 124/80 06/17/22 19:22 97 06/17/22 19:22 98 H 06/17/22 19:17 97 06/17/22 19:17 101 H 06/17/22 19:13 96 H 06/17/22 19:13 131/77 06/17/22 19:12 98 06/17/22 19:12 102 H 06/17/22 19:07 98 06/17/22 19:07 99 H 06/17/22 19:00 18 06/17/22 19:00 18 06/17/22 19:02 99 06/17/22 19:02 99 H 06/17/22 18:58 99 H 06/17/22 18:58 128/88 06/17/22 18:57 100 06/17/22 18:57 112 H 06/17/22 18:52 98 06/17/22 18:52 100 H 06/17/22 18:47 98 06/17/22 18:47 103 H 06/17/22 18:42 97 06/17/22 18:42 104 H 06/17/22 18:42 127/84 06/17/22 18:37 97 06/17/22 18:37 94 H 06/17/22 18:32 98 06/17/22 18:32 98 H 06/17/22 18:30 20 06/17/22 18:30 20 06/17/22 18:27 99 06/17/22 18:27 94 H 06/17/22 18:28 95 H 06/17/22 18:28 127/84 06/17/22 18:00 20 06/17/22 18:00 20 06/17/22 18:22 98 06/17/22 18:22 106 H 06/17/22 18:17 98 06/17/22 18:17 95 H 06/17/22 18:13 98 H 06/17/22 18:13 126/90 06/17/22 18:12 99 06/17/22 18:12 94 H 06/17/22 18:07 99 06/17/22 18:07 149 H 06/17/22 18:02 100 06/17/22 18:02 96 H 06/17/22 17:57 99 06/17/22 17:57 109 H 06/17/22 17:58 88 06/17/22 17:58 118/74 06/17/22 17:52 100 06/17/22 17:52 99 H 06/17/22 17:47 99 06/17/22 17:47 98 H 06/17/22 17:42 98 06/17/22 17:42 92 H 06/17/22 17:42 121/80 06/17/22 17:37 99 06/17/22 17:37 96 H 06/17/22 17:32 99 06/17/22 17:32 90 06/17/22 17:27 97 06/17/22 17:27 96 H 06/17/22 17:27 122/74 06/17/22 16:35 36.6 C 06/17/22 17:22 97 06/17/22 17:22 98 H 06/17/22 17:17 98 06/17/22 17:17 100 H 06/17/22 17:00 20 06/17/22 17:00 20 06/17/22 17:13 93 H 06/17/22 17:13 117/74 06/17/22 17:12 99 06/17/22 17:12 99 H 06/17/22 17:07 98 06/17/22 17:07 86 06/17/22 17:02 97 06/17/22 17:02 118 H 06/17/22 17:01 106 H 06/17/22 17:01 135/76 06/17/22 16:58 100 H 06/17/22 16:58 120/81 06/17/22 16:57 98 06/17/22 16:57 100 H 06/17/22 16:52 99 06/17/22 16:52 124 H 06/17/22 16:47 99 06/17/22 16:47 96 H 06/17/22 16:42 98 06/17/22 16:42 96 H 06/17/22 16:42 121/79 06/17/22 16:30 20 06/17/22 16:30 20 06/17/22 16:37 98 06/17/22 16:37 113 H 06/17/22 16:32 99 06/17/22 16:32 115 H 06/17/22 16:27 99 06/17/22 16:27 93 H 06/17/22 16:27 108/60 06/17/22 16:22 98 06/17/22 16:22 84 06/17/22 16:15 16 06/17/22 16:15 16 06/17/22 16:17 99 06/17/22 16:17 85 06/17/22 16:12 100 06/17/22 16:12 82 06/17/22 16:13 82 06/17/22 16:13 114/64 06/17/22 16:07 100 06/17/22 16:07 89 06/17/22 16:02 98 06/17/22 16:02 93 H 06/17/22 15:59 91 H 06/17/22 15:59 114/64 06/17/22 15:57 100 06/17/22 15:57 86 06/17/22 15:52 98 06/17/22 15:52 86 06/17/22 15:47 98 06/17/22 15:47 83 06/17/22 15:42 99 06/17/22 15:42 88 06/17/22 15:43 86 06/17/22 15:43 132/73 06/17/22 15:37 99 06/17/22 15:37 91 H 06/17/22 15:30 20 06/17/22 15:30 20 06/17/22 15:32 100 06/17/22 15:32 97 H 06/17/22 15:27 99 06/17/22 15:27 96 H 06/17/22 15:27 126/71 06/17/22 15:22 99 06/17/22 15:22 96 H 06/17/22 15:17 100 06/17/22 15:17 109 H 06/17/22 15:14 108 H 06/17/22 15:14 138/85 06/17/22 15:12 99 06/17/22 15:12 120 H 06/17/22 15:07 100 06/17/22 15:07 90 06/17/22 15:02 100 06/17/22 15:02 112 H 06/17/22 14:57 100 06/17/22 14:57 86 06/17/22 14:58 90 06/17/22 14:58 107/59 L 06/17/22 14:52 100 06/17/22 14:52 87 06/17/22 14:48 146 H 06/17/22 14:48 149/68 H 06/17/22 14:47 98 06/17/22 14:47 154 H 06/17/22 14:42 99 06/17/22 14:42 96 H 06/17/22 14:43 101 H 06/17/22 14:43 117/83 06/17/22 14:37 99 06/17/22 14:37 99 H 06/17/22 13:30 20 06/17/22 13:30 20 06/17/22 14:00 20 06/17/22 14:00 20 06/17/22 14:32 99 06/17/22 14:32 91 H 06/17/22 14:27 100 06/17/22 14:27 86 06/17/22 14:27 122/80 06/17/22 14:10 18 06/17/22 14:10 36.6 C 18 06/17/22 14:22 100 06/17/22 14:22 85 06/17/22 14:17 99 06/17/22 14:17 111 H 06/17/22 14:14 97 H 06/17/22 14:14 118/78 06/17/22 14:12 98 06/17/22 14:12 85 06/17/22 14:07 98 06/17/22 14:07 107 H 06/17/22 14:02 98 06/17/22 14:02 116 H 06/17/22 13:57 98 06/17/22 13:57 90 06/17/22 13:58 85 06/17/22 13:58 121/73 06/17/22 13:52 98 06/17/22 13:52 134 H 06/17/22 13:47 97 06/17/22 13:47 131 H 06/17/22 13:42 97 06/17/22 13:42 114 H 06/17/22 13:42 123/78 06/17/22 13:37 97 06/17/22 13:37 96 H 06/17/22 13:32 99 06/17/22 13:32 82 06/17/22 13:27 98 06/17/22 13:27 86 06/17/22 13:27 117/75 06/17/22 13:22 100 06/17/22 13:22 82 06/17/22 13:17 99 06/17/22 13:17 135 H 06/17/22 13:12 98 06/17/22 13:12 137 H 06/17/22 13:12 115/64 06/17/22 13:07 100 06/17/22 13:07 95 H 06/17/22 13:02 99 06/17/22 13:02 102 H 06/17/22 12:30 20 06/17/22 12:30 20 06/17/22 13:00 20 06/17/22 13:00 20 06/17/22 12:35 18 06/17/22 12:35 18 06/17/22 12:40 18 06/17/22 12:40 18 06/17/22 12:45 20 06/17/22 12:45 20 06/17/22 12:57 98 06/17/22 12:57 128 H 06/17/22 12:55 129 H 06/17/22 12:55 117/65 06/17/22 12:53 84 06/17/22 12:53 123/66 06/17/22 12:52 98 06/17/22 12:52 110 H 06/17/22 12:51 88 06/17/22 12:51 131/70 06/17/22 12:49 136 H 06/17/22 12:49 110/58 L 06/17/22 12:47 100 06/17/22 12:47 93 H 06/17/22 12:47 153 H 06/17/22 12:47 94/50 L 06/17/22 12:44 108 H 06/17/22 12:44 123/56 L 06/17/22 12:42 98 06/17/22 12:42 134 H 06/17/22 12:41 103 H 06/17/22 12:41 128/62 06/17/22 12:38 114 H 06/17/22 12:38 145/78 H 06/17/22 12:37 98 06/17/22 12:37 159 H 06/17/22 12:36 171 H 06/17/22 12:36 147/96 H 06/17/22 12:35 89 06/17/22 12:35 139/81 06/17/22 12:32 98 06/17/22 12:32 122 H 06/17/22 12:33 115 H 06/17/22 12:33 84/50 L 06/17/22 12:31 93 H 06/17/22 12:31 130/72 06/17/22 12:30 92 06/17/22 12:30 107 H 06/17/22 12:29 84 06/17/22 12:29 124/77 06/17/22 12:27 98 06/17/22 12:27 106 H 06/17/22 12:27 121 H 06/17/22 12:27 121/77 06/17/22 12:22 99 06/17/22 12:22 98 H 06/17/22 12:17 98 06/17/22 12:17 92 H 06/17/22 12:12 99 06/17/22 12:12 92 H 06/17/22 12:07 99 06/17/22 12:07 90 06/17/22 12:00 20 06/17/22 12:00 20 06/17/22 12:02 100 06/17/22 12:02 88 06/17/22 11:57 99 06/17/22 11:57 81 06/17/22 11:52 100 06/17/22 11:52 80 06/17/22 11:30 20 06/17/22 11:30 20 06/17/22 11:01 36.7 C 06/17/22 11:00 20 06/17/22 11:00 20 06/17/22 11:16 83 06/17/22 11:16 129/86 06/17/22 10:00 20 06/17/22 10:00 20 06/17/22 10:04 83 06/17/22 10:04 123/78 06/17/22 09:30 20 06/17/22 09:30 20 06/17/22 08:58 80 06/17/22 08:58 121/83 Coding Level of Care Code None Diagnoses Post-dates O48.0
[2022-06-17] MEDS ORDERED: ACETAMINOPHEN 325 MG TAB PO ONE (19:51)
--- NOTE | 2022-06-18 00:17 | Labor Progress Brief Note ---
Date of Service June 18, 2022 Subjective feeling pressure Assessment & Plan (1) Post-dates : Plan great progress, fetus reassuring. anticipate . Admission and Anticipated Discharge Date Admission Date: June 17, 2022 Physical Exam Physical Exam: cx--ant lip toco--q2-3min, adequate contractions efm--120s with mod variability, small accels, early decels Results & Data ([facility]) Vital Signs (Past 12 Hours) Vital Signs Temp Pulse Resp BP Pulse Ox 06/18/22 00:12 119 H 97 06/18/22 00:13 118 H 129/79 06/18/22 00:07 114 H 97 06/18/22 00:00 18 06/18/22 00:00 36.9 C 18 06/18/22 00:02 109 H 96 06/17/22 23:57 98 06/17/22 23:57 109 H 06/17/22 23:57 148/79 H 06/17/22 23:52 97 06/17/22 23:52 116 H 06/17/22 23:47 96 06/17/22 23:47 119 H 06/17/22 23:42 95 06/17/22 23:42 100 H 06/17/22 23:43 101 H 06/17/22 23:43 134/80 06/17/22 23:37 95 06/17/22 23:37 101 H 06/17/22 23:30 18 06/17/22 23:30 18 06/17/22 23:32 96 06/17/22 23:32 107 H 06/17/22 23:29 107 H 06/17/22 23:29 134/84 06/17/22 23:27 97 06/17/22 23:27 111 H 06/17/22 23:22 96 06/17/22 23:22 126 H 06/17/22 23:17 94 06/17/22 23:17 96 H 06/17/22 23:12 93 06/17/22 23:12 98 H 06/17/22 23:13 103 H 06/17/22 23:13 128/73 06/17/22 23:07 94 06/17/22 23:07 100 H 06/17/22 23:00 18 06/17/22 23:00 18 06/17/22 23:02 95 06/17/22 23:02 104 H 06/17/22 22:57 94 06/17/22 22:57 109 H 06/17/22 22:57 123/69 06/17/22 22:52 94 06/17/22 22:52 101 H 06/17/22 22:47 95 06/17/22 22:47 104 H 06/17/22 22:42 95 06/17/22 22:42 102 H 06/17/22 22:43 103 H 06/17/22 22:43 120/74 06/17/22 22:37 94 06/17/22 22:37 100 H 06/17/22 22:30 18 06/17/22 22:30 18 06/17/22 22:32 94 06/17/22 22:32 95 H 06/17/22 22:27 96 06/17/22 22:27 108 H 06/17/22 22:27 126/75 06/17/22 22:22 95 06/17/22 22:22 110 H 06/17/22 22:17 95 06/17/22 22:17 101 H 06/17/22 22:14 101 H 06/17/22 22:14 135/83 06/17/22 22:12 98 06/17/22 22:12 116 H 06/17/22 22:00 18 06/17/22 22:00 37.2 C 18 06/17/22 21:30 20 06/17/22 21:30 20 06/17/22 22:07 98 06/17/22 22:07 120 H 06/17/22 22:02 98 06/17/22 22:02 126 H 06/17/22 21:57 97 06/17/22 21:57 111 H 06/17/22 21:57 122 H 06/17/22 21:57 115/71 06/17/22 21:52 96 06/17/22 21:52 111 H 06/17/22 21:47 95 06/17/22 21:47 97 H 06/17/22 21:42 96 06/17/22 21:42 99 H 06/17/22 21:43 103 H 06/17/22 21:43 125/76 06/17/22 21:37 97 06/17/22 21:37 104 H 06/17/22 21:32 99 06/17/22 21:32 125 H 06/17/22 21:27 97 06/17/22 21:27 113 H 06/17/22 21:27 125/77 06/17/22 21:22 98 06/17/22 21:22 106 H 06/17/22 21:17 97 06/17/22 21:17 115 H 06/17/22 21:12 99 06/17/22 21:12 119 H 06/17/22 21:12 126/77 06/17/22 21:00 18 06/17/22 21:00 37.1 C 18 06/17/22 21:07 98 06/17/22 21:07 112 H 06/17/22 21:02 97 06/17/22 21:02 112 H 06/17/22 20:57 98 06/17/22 20:57 117 H 06/17/22 20:57 110 H 06/17/22 20:57 130/88 06/17/22 20:52 100 06/17/22 20:52 107 H 06/17/22 20:47 97 06/17/22 20:47 101 H 06/17/22 20:43 100 H 06/17/22 20:43 129/79 06/17/22 20:42 98 06/17/22 20:42 96 H 06/17/22 20:30 18 06/17/22 20:30 18 06/17/22 20:37 98 06/17/22 20:37 99 H 06/17/22 20:32 98 06/17/22 20:32 99 H 06/17/22 20:27 99 06/17/22 20:27 104 H 06/17/22 20:27 108 H 06/17/22 20:27 128/82 06/17/22 20:22 98 06/17/22 20:22 102 H 06/17/22 20:17 96 06/17/22 20:17 110 H 06/17/22 20:13 105 H 06/17/22 20:13 125/79 06/17/22 20:12 98 06/17/22 20:12 110 H 06/17/22 20:07 100 06/17/22 20:07 125 H 06/17/22 20:00 18 06/17/22 20:00 18 06/17/22 20:02 98 06/17/22 20:02 104 H 06/17/22 19:30 18 06/17/22 19:30 18 06/17/22 19:57 99 06/17/22 19:57 107 H 06/17/22 19:58 100 H 06/17/22 19:58 118/74 06/17/22 19:52 98 06/17/22 19:52 102 H 06/17/22 19:47 99 06/17/22 19:47 101 H 06/17/22 19:42 98 06/17/22 19:42 112 H 06/17/22 19:43 113 H 06/17/22 19:43 122/73 06/17/22 19:37 97 06/17/22 19:37 102 H 06/17/22 19:32 98 06/17/22 19:32 99 H 06/17/22 19:27 97 06/17/22 19:27 95 H 06/17/22 19:27 124/80 06/17/22 19:22 97 06/17/22 19:22 98 H 06/17/22 19:17 97 06/17/22 19:17 101 H 06/17/22 19:13 96 H 06/17/22 19:13 131/77 06/17/22 19:12 98 06/17/22 19:12 102 H 06/17/22 19:07 98 06/17/22 19:07 99 H 06/17/22 19:00 18 06/17/22 19:00 18 06/17/22 19:02 99 06/17/22 19:02 99 H 06/17/22 18:58 99 H 06/17/22 18:58 128/88 06/17/22 18:57 100 06/17/22 18:57 112 H 06/17/22 18:52 98 06/17/22 18:52 100 H 06/17/22 18:47 98 06/17/22 18:47 103 H 06/17/22 18:42 97 06/17/22 18:42 104 H 06/17/22 18:42 127/84 06/17/22 18:37 97 06/17/22 18:37 94 H 06/17/22 18:32 98 06/17/22 18:32 98 H 06/17/22 18:30 20 06/17/22 18:30 20 06/17/22 18:27 99 06/17/22 18:27 94 H 06/17/22 18:28 95 H 06/17/22 18:28 127/84 06/17/22 18:00 20 06/17/22 18:00 20 06/17/22 18:22 98 06/17/22 18:22 106 H 06/17/22 18:17 98 06/17/22 18:17 95 H 06/17/22 18:13 98 H 06/17/22 18:13 126/90 06/17/22 18:12 99 06/17/22 18:12 94 H 06/17/22 18:07 99 06/17/22 18:07 149 H 06/17/22 18:02 100 06/17/22 18:02 96 H 06/17/22 17:57 99 06/17/22 17:57 109 H 06/17/22 17:58 88 06/17/22 17:58 118/74 06/17/22 17:52 100 06/17/22 17:52 99 H 06/17/22 17:47 99 06/17/22 17:47 98 H 06/17/22 17:42 98 06/17/22 17:42 92 H 06/17/22 17:42 121/80 06/17/22 17:37 99 06/17/22 17:37 96 H 06/17/22 17:32 99 06/17/22 17:32 90 06/17/22 17:27 97 06/17/22 17:27 96 H 06/17/22 17:27 122/74 06/17/22 16:35 36.6 C 06/17/22 17:22 97 06/17/22 17:22 98 H 06/17/22 17:17 98 06/17/22 17:17 100 H 06/17/22 17:00 20 06/17/22 17:00 20 06/17/22 17:13 93 H 06/17/22 17:13 117/74 06/17/22 17:12 99 06/17/22 17:12 99 H 06/17/22 17:07 98 06/17/22 17:07 86 06/17/22 17:02 97 06/17/22 17:02 118 H 06/17/22 17:01 106 H 06/17/22 17:01 135/76 06/17/22 16:58 100 H 06/17/22 16:58 120/81 06/17/22 16:57 98 06/17/22 16:57 100 H 06/17/22 16:52 99 06/17/22 16:52 124 H 06/17/22 16:47 99 06/17/22 16:47 96 H 06/17/22 16:42 98 06/17/22 16:42 96 H 06/17/22 16:42 121/79 06/17/22 16:30 20 06/17/22 16:30 20 06/17/22 16:37 98 06/17/22 16:37 113 H 06/17/22 16:32 99 06/17/22 16:32 115 H 06/17/22 16:27 99 06/17/22 16:27 93 H 06/17/22 16:27 108/60 06/17/22 16:22 98 06/17/22 16:22 84 06/17/22 16:15 16 06/17/22 16:15 16 06/17/22 16:17 99 06/17/22 16:17 85 06/17/22 16:12 100 06/17/22 16:12 82 06/17/22 16:13 82 06/17/22 16:13 114/64 06/17/22 16:07 100 06/17/22 16:07 89 06/17/22 16:02 98 06/17/22 16:02 93 H 06/17/22 15:59 91 H 06/17/22 15:59 114/64 06/17/22 15:57 100 06/17/22 15:57 86 06/17/22 15:52 98 06/17/22 15:52 86 06/17/22 15:47 98 06/17/22 15:47 83 06/17/22 15:42 99 06/17/22 15:42 88 06/17/22 15:43 86 06/17/22 15:43 132/73 06/17/22 15:37 99 06/17/22 15:37 91 H 06/17/22 15:30 20 06/17/22 15:30 20 06/17/22 15:32 100 06/17/22 15:32 97 H 06/17/22 15:27 99 06/17/22 15:27 96 H 06/17/22 15:27 126/71 06/17/22 15:22 99 06/17/22 15:22 96 H 06/17/22 15:17 100 06/17/22 15:17 109 H 06/17/22 15:14 108 H 06/17/22 15:14 138/85 06/17/22 15:12 99 06/17/22 15:12 120 H 06/17/22 15:07 100 06/17/22 15:07 90 06/17/22 15:02 100 06/17/22 15:02 112 H 06/17/22 14:57 100 06/17/22 14:57 86 06/17/22 14:58 90 06/17/22 14:58 107/59 L 06/17/22 14:52 100 06/17/22 14:52 87 06/17/22 14:48 146 H 06/17/22 14:48 149/68 H 06/17/22 14:47 98 06/17/22 14:47 154 H 06/17/22 14:42 99 06/17/22 14:42 96 H 06/17/22 14:43 101 H 06/17/22 14:43 117/83 06/17/22 14:37 99 06/17/22 14:37 99 H 06/17/22 13:30 20 06/17/22 13:30 20 06/17/22 14:00 20 06/17/22 14:00 20 06/17/22 14:32 99 06/17/22 14:32 91 H 06/17/22 14:27 100 06/17/22 14:27 86 06/17/22 14:27 122/80 06/17/22 14:10 18 06/17/22 14:10 36.6 C 18 06/17/22 14:22 100 06/17/22 14:22 85 06/17/22 14:17 99 06/17/22 14:17 111 H 06/17/22 14:14 97 H 06/17/22 14:14 118/78 06/17/22 14:12 98 06/17/22 14:12 85 06/17/22 14:07 98 06/17/22 14:07 107 H 06/17/22 14:02 98 06/17/22 14:02 116 H 06/17/22 13:57 98 06/17/22 13:57 90 06/17/22 13:58 85 06/17/22 13:58 121/73 06/17/22 13:52 98 06/17/22 13:52 134 H 06/17/22 13:47 97 06/17/22 13:47 131 H 06/17/22 13:42 97 06/17/22 13:42 114 H 06/17/22 13:42 123/78 06/17/22 13:37 97 06/17/22 13:37 96 H 06/17/22 13:32 99 06/17/22 13:32 82 06/17/22 13:27 98 06/17/22 13:27 86 06/17/22 13:27 117/75 06/17/22 13:22 100 06/17/22 13:22 82 06/17/22 13:17 99 06/17/22 13:17 135 H 06/17/22 13:12 98 06/17/22 13:12 137 H 06/17/22 13:12 115/64 06/17/22 13:07 100 06/17/22 13:07 95 H 06/17/22 13:02 99 06/17/22 13:02 102 H 06/17/22 12:30 20 06/17/22 12:30 20 06/17/22 13:00 20 06/17/22 13:00 20 06/17/22 12:35 18 06/17/22 12:35 18 06/17/22 12:40 18 06/17/22 12:40 18 06/17/22 12:45 20 06/17/22 12:45 20 06/17/22 12:57 98 06/17/22 12:57 128 H 06/17/22 12:55 129 H 06/17/22 12:55 117/65 06/17/22 12:53 84 06/17/22 12:53 123/66 06/17/22 12:52 98 06/17/22 12:52 110 H 06/17/22 12:51 88 06/17/22 12:51 131/70 06/17/22 12:49 136 H 06/17/22 12:49 110/58 L 06/17/22 12:47 100 06/17/22 12:47 93 H 06/17/22 12:47 153 H 06/17/22 12:47 94/50 L 06/17/22 12:44 108 H 06/17/22 12:44 123/56 L 06/17/22 12:42 98 06/17/22 12:42 134 H 06/17/22 12:41 103 H 06/17/22 12:41 128/62 06/17/22 12:38 114 H 06/17/22 12:38 145/78 H 06/17/22 12:37 98 06/17/22 12:37 159 H 06/17/22 12:36 171 H 06/17/22 12:36 147/96 H 06/17/22 12:35 89 06/17/22 12:35 139/81 06/17/22 12:32 98 06/17/22 12:32 122 H 06/17/22 12:33 115 H 06/17/22 12:33 84/50 L 06/17/22 12:31 93 H 06/17/22 12:31 130/72 06/17/22 12:30 92 06/17/22 12:30 107 H 06/17/22 12:29 84 06/17/22 12:29 124/77 06/17/22 12:27 98 06/17/22 12:27 106 H 06/17/22 12:27 121 H 06/17/22 12:27 121/77 06/17/22 12:22 99 06/17/22 12:22 98 H 06/17/22 12:17 98 06/17/22 12:17 92 H Coding Level of Care Code None Diagnoses Post-dates O48.0
[2022-06-18] MEDS: ONDANSETRON INJ 2 MG/ML 2 ML VIAL IV PRN (00:19)
[2022-06-18] MEDS: fentaNYL 2MCG/ML ROPIVACAINE 1.25MG/ML 100 ML BAG EPI PRN (03:35)
[2022-06-18] MEDS ORDERED: OXYTOCIN 30 UNITS/500 ML BAG IV PRN (05:02)
[2022-06-18] MEDS ORDERED: BENZOCAINE 20% AER SPR 82.5 GM CAN EXT PRN (05:02)
[2022-06-18] MEDS ORDERED: HYDROCORTISONE ACETATE 25 MG SUPP PR PRN (05:02)
[2022-06-18] MEDS ORDERED: DIPHTHERIA/TETANUS/PERTUSSIS 0.5mL SYR/VIAL (Age 7+yrs) IM ONE (05:02)
[2022-06-18] MEDS ORDERED: ACETAMINOPHEN 325 MG TAB PO PRN (05:02)
--- NOTE | 2022-06-18 05:09 | Delivery Summary ---
Vaginal Delivery Summary Date of Service June 18, 2022 Vaginal Delivery Summary and 2nd Degree LAC (left labial) Pre-operative Diagnosis: at 41 4/7 weeks Post-operative Diagnosis: same meconium Procedure: flowers bulb pitocin induction epidural arom iupc left labial and second degree laceration repair EBL: 300 cc Anesthesia: epidural Procedure: Patient presented to labor and delivery for induction for postdates. Had flowers the night before and fell out. Started with pitocin induction. Got epidural and then arom for thin meconium. Needed iupc to document adequate contractions as she stalled at 6cm. Eventually, Progressed to c/c/+2. The patient pushed for approximately 2 hours to deliver a viable male infant in maico position. The shoulder and the rest of the body were then delivered without difficulty. There was a large gush of thick meconium noted after delivery of the head. The baby was vigorous. The nose and mouth were bulb suctioned and the infant was placed in the maternal abdomen for drying and attention. Cord was clamped and cut at one minute of life. Cord blood and segment obtained. Placenta delivered spontaneous, intact with a three vessel cord. Cervix/sulci/rectum were intact. A second degree perineal laceration and left labial laceration were repaired in the normal standard fashion. Hemostasis obtained with dilute pitocin and fundal massage. Apgars were 8/9. Mother and baby doing well at the end of the delivery. [facility] [place] Vaginal Delivery Charge Delivery Type Details: and 2nd Degree LAC (left labial)
[2022-06-18] MEDS: IBUPROFEN 600 MG TAB PO PRN ×3 (05:24→19:01)
[2022-06-18] MEDS: oxyCODONE/ACETAMINOPHEN 5mg/325mg TAB PO PRN (06:31)
[2022-06-18] MEDS: PRENATAL VITAMIN 1 TAB PO SCH (08:28)
--- NOTE | 2022-06-18 08:30 | Anesthesia Procedure Note ---
Date of Service June 18, 2022 Anesthesia Post Epidural Note Vital Signs Vital Signs: Temp Pulse Resp BP Pulse Ox 98.4 F 127 H 18 132/62 97 06/18/22 07:00 06/18/22 07:00 06/18/22 07:00 06/18/22 07:00 06/18/22 04:57 Pain Intensity Bilateral Perineal: Pain Intensity: 3 Notes Mental Status: alert / awake / arousable and participated in evaluation Nausea / Vomiting: adequately controlled Pain: adequately controlled Airway Patency, RR, SpO2: stable & adequate BP & HR: stable & adequate Hydration State: stable & adequate Neuraxial Anesthesia: was administered and sensory block is resolving Anesthetic Complications: no major complications apparent and Pt Satisfied with anesthetic care Epidural: Removed without complications and With tip intact
[2022-06-18] MEDS: DOCUSATE SODIUM 100 MG CAP PO SCH ×2 (11:48→20:24)
[2022-06-19] MEDS: oxyCODONE/ACETAMINOPHEN 5mg/325mg TAB PO PRN
--- NOTE | 2022-06-19 05:30 | Obstetrical Progress Note ---
Date of Service <María Law MD - Last Filed: 06/19/22 06:42> June 19, 2022 Assessment & Plan <María Law MD - Last Filed: 06/19/22 06:42> (1) care following vaginal delivery: 26 y/o female who presented for IOL now PPD1. Rh pos, GBS neg, RI. Satisfactory post progress. Tolerating PO. Encourage ambulation. <Chacha Thompson MD - Last Filed: 06/19/22 07:49> (1) care following vaginal delivery: Subjective <María Law MD - Last Filed: 06/19/22 06:42> Ambulation: ambulating normally Voiding: no voiding problems Passing Gas:: Yes Diet Tolerance:: regular diet Lochia:: Small Feeding Type:: breast feeding Physical Exam <María Law MD - Last Filed: 06/19/22 06:42> Gen: well appearing female in NAD HEENT: AT NC Resp: CTAB no increased work of breathing CV: RRR no m/r/g clinically well perfused, no calf tenderness : uterus firm, non-tender at the level of the umbilicus Psych: appropriate mood and affect Neuro: alert and oriented Results & Data ([facility]) <María Law MD - Last Filed: 06/19/22 06:42> Vital Signs (Past 12 Hours) Vital Signs Temp Pulse Resp BP 06/19/22 03:40 36.6 C 81 18 117/69 06/19/22 00:00 37 C 91 H 18 119/58 L 06/18/22 19:30 36.8 C 91 H 18 114/70 Laboratory Results 06/17/22 08:46 <Chacha Thompson MD - Last Filed: 06/19/22 07:49> Co-Signing Physician Notes Resident Physician Supervision Note: I interviewed and examined the patient. Discussed with Dr. Law and agree with findings and plan as documented in the note. Any exceptions or clarifications are listed here: PP1 s/p , doing well. VSS, exam benign and wnl. Continue rout pp care Documented By: Chacha Thompson MD Resident Activity Tracking <María Law MD - Last Filed: 06/19/22 06:42> Resident Involvement: Resident Care Provided Care Provided: OB Delivery
[2022-06-19 06:33] LABS: Hematocrit (blood only) 27.4 % (37.0-47.0); Hemoglobin 8.6 g/dl (12.0-16.0)
[2022-06-19] MEDS: IBUPROFEN 600 MG TAB PO PRN ×4 (09:57→20:22)
[2022-06-19] MEDS: PRENATAL VITAMIN 1 TAB PO SCH (09:57)
[2022-06-19] MEDS: DOCUSATE SODIUM 100 MG CAP PO SCH ×2 (09:57→20:22)
[2022-06-19] MEDS: FERROUS SULFATE 325 MG TAB PO SCH (16:28)
[2022-06-19] MEDS ORDERED: bisacodyL 5 MG TABEC PO SCH (20:00)
[2022-06-20] MEDS ORDERED: bisacodyL 10 MG SUPP PR PRN (05:02)
--- NOTE | 2022-06-20 06:25 | Obstetrical Progress Note ---
Date of Service <María Law MD - Last Filed: 06/20/22 07:03> June 20, 2022 Assessment & Plan <María Law MD - Last Filed: 06/20/22 07:03> (1) care following vaginal delivery: 26 y/o female who presented for IOL now PPD2. Rh pos, GBS neg, RI. Satisfactory post progress. Tolerating PO. Encourage ambulation. <Kiesha Vides MD, FACOG - Last Filed: 06/20/22 08:02> (1) care following vaginal delivery: Subjective <María Law MD - Last Filed: 06/20/22 07:03> Ambulation: ambulating normally Voiding: no voiding problems Passing Gas:: Yes Diet Tolerance:: regular diet Lochia:: Small Physical Exam <María Law MD - Last Filed: 06/20/22 07:03> Gen: well appearing female in NAD HEENT: AT NC Resp: no increased work of breathing CV: clinically well perfused, no calf tenderness : uterus firm, non-tender at the level of the umbilicus Psych: appropriate mood and affect Neuro: alert and oriented Results & Data ([facility]) <María Law MD - Last Filed: 06/20/22 07:03> Vital Signs (Past 12 Hours) Vital Signs Temp Pulse Resp BP Pulse Ox O2 Del Method 06/19/22 23:23 36.7 C 88 18 121/83 98 Room Air 06/19/22 20:18 36.9 C 92 H 16 119/77 99 Room Air <Kiesha Vides MD, FACOG - Last Filed: 06/20/22 08:02> Co-Signing Physician Notes Resident Physician Supervision Note: I interviewed and examined the patient. Discussed with Dr. aLw and agree with findings and plan as documented in the note. Any exceptions or clarifications are listed here: [None] Documented By: Kiesha Vides MD, FACOG Resident Activity Tracking <María Law MD - Last Filed: 06/20/22 07:03> Resident Involvement: Resident Care Provided Care Provided: OB Delivery
[2022-06-20] MEDS: FERROUS SULFATE 325 MG TAB PO SCH (07:40)
[2022-06-20] MEDS: PRENATAL VITAMIN 1 TAB PO SCH (07:40)
[2022-06-20] MEDS: DOCUSATE SODIUM 100 MG CAP PO SCH (07:40)
[2022-06-20] MEDS: IBUPROFEN 600 MG TAB PO PRN ×2 (07:41→15:00)
== END 2022-06-20 18:15 | disposition home or self-care (01) | DRG 807 ==
LOC: 4S1 07:26 → 4E2 06-18 07:16